=== PATIENT | female | born 1965 | race Caucasian/White ===

== ENCOUNTER 2020-03-02 18:49 | Emergency (ER) | payer OTHER ==
[~2020-03-02] VITALS: Ht 160 cm; Wt 98.4 kg
[2020-03-02 19:00] VITALS: BP_SYST 151
[2020-03-02] MEDS ORDERED: ONDANSETRON 4 MG ODT TAB PO ONE (20:00)
[2020-03-02] MEDS ORDERED: KETOROLAC TROMETHAMINE 60 MG/2 ML VIAL IM ONE (20:00)
[2020-03-02] MEDS ORDERED: MORPHINE 4 MG/ML INJ. SYRINGE IM ONE (20:45)
[2020-03-02] MEDS ORDERED: PROCHLORPERAZINE EDISYLATE 10 MG/2 ML VIAL IVP ONE (21:00)
[2020-03-02] MEDS ORDERED: NACL 0.9% 1,000 ML IV ONE (21:00)
[2020-03-02] MEDS ORDERED: DIPHENHYDRAMINE INJ 50 MG/ML VIAL IVP ONE (21:00)
[2020-03-02 22:14] VITALS: BP_SYST 148
== END 2020-03-02 22:14 | disposition home or self-care (01) ==
LOC: SED 18:49
DX: R51 Headache (principal); R11.2 Nausea with vomiting, unspecified
CPT/HCPCS: 81002; 81025; 96361; 96372; 96374; 96375; 99284; J7030; J0780; J1200; J1885; J2270; Q0162

== ENCOUNTER 2020-03-08 20:13 | Inpatient (IN) | payer OTHER ==
[~2020-03-08] VITALS: Ht 160 cm; Wt 99.3 kg
[2020-03-08 20:15] VITALS: BP_SYST 157
[2020-03-08] MEDS ORDERED: NACL 0.9% 1,000 ML IV ONE (20:18)
[2020-03-08 20:54] LABS: EOSINOPHILS # (AUTO) 0.1 K/uL (0.0-0.4); HEMOGLOBIN 15.9 g/dL (12.0-16.0); MEAN CORPUSCULAR HEMOGLOBIN 31 pg (27-31); MONOCYTES # (AUTO) 0.6 K/uL (0.0-1.0); MONOCYTES % (AUTO) 6.1 % (1.7-9.3); RED CELL DISTRIBUTION WIDTH 13.2 % (9.0-15.0)
[2020-03-08 21:01] LABS: BASOPHILS % (AUTO) 0.2 % (0.0-2.0); EOSINOPHILS % (AUTO) 0.8 % (0.0-4.0); HEMATOCRIT 46.6 % (36-48); LYMPHOCYTES # (AUTO) 4.6 K/uL (1.0-5.5); LYMPHOCYTES % (AUTO) 48.9 % (20.5-51.5); MEAN CORPUSCULAR HGB CONC 34 % (32-36); MEAN CORPUSCULAR VOLUME 90 fL (79.0-98.0); NEUTROPHILS # (AUTO) 4.1 K/uL (1.8-7.7); PLATELET COUNT (AUTO) 276 K/uL (130-430); RED BLOOD CELL COUNT(AUTO) 5.18 MIL/uL (4.2-6.2); WHITE BLOOD COUNT (AUTO) 9.4 K/uL (4.8-10.8)
[2020-03-08 21:45] LABS: PROTHROMBIN TIME 9.7 SECS (9.5-12.5)
[2020-03-08 21:53] LABS: CALCIUM 8.5 mg/dL (8.4-11.0); CREATININE 0.95 mg/dL (0.55-1.30); POTASSIUM 3.5 mmol/L (3.5-5.1); TOTAL BILIRUBIN 0.3 mg/dL (0.0-1.0)
[2020-03-08 21:54] LABS: ALBUMIN 3.8 g/dL (3.4-4.8)
[2020-03-08] MEDS ORDERED: ACETAMINOPHEN 325 MG TABLET PO PRN (22:15)
[2020-03-09] VITALS (7 sets, daily range): BP systolic 102–155
[2020-03-09] MEDS: ACETAMINOPHEN 325 MG TABLET PO PRN ×3 (01:37→22:09)
[2020-03-09 06:22] LABS: ALBUMIN 3.2 g/dL (3.4-4.8); CALCIUM 8.1 mg/dL (8.4-11.0); CREATININE 0.69 mg/dL (0.55-1.30); POTASSIUM 4.4 mmol/L (3.5-5.1); TOTAL BILIRUBIN 0.4 mg/dL (0.0-1.0)
[2020-03-09] MEDS: ASPIRIN 81 MG TAB.CHEW PO SCH (08:14)
[2020-03-09] MEDS ORDERED: ASPIRIN 81 MG TAB.CHEW PO SCH (09:00)
[2020-03-09] MEDS ORDERED: METOPROLOL TARTRATE 25 MG TABLET PO ONE (10:00)
[2020-03-09] MEDS ORDERED: LORazepam 2 MG/ML VIAL IVP ONE (10:45)
[2020-03-09] MEDS ORDERED: LISINOPRIL 10 MG TABLET (PRINIVIL) PO ONE (13:45)
[2020-03-09] MEDS: METOPROLOL TARTRATE 25 MG TABLET PO SCH (22:09)
[2020-03-10] VITALS (7 sets, daily range): BP systolic 96–177
[2020-03-10] MEDS: ACETAMINOPHEN 325 MG TABLET PO PRN (04:54)
[2020-03-10] MEDS ORDERED: ONDANSETRON HCL 4 MG/2 ML VIAL IVP PRN (07:45)
[2020-03-10] MEDS ORDERED: LORazepam 2 MG/ML VIAL IVP ONE (07:45)
[2020-03-10] MEDS: ASPIRIN 81 MG TAB.CHEW PO SCH (08:20)
[2020-03-10] MEDS ORDERED: LISINOPRIL 10 MG TABLET (PRINIVIL) PO SCH (09:00)
[2020-03-10] MEDS ORDERED: ATORVASTATIN 10 MG TABLET PO SCH (09:00)
[2020-03-10] MEDS: METOPROLOL TARTRATE 25 MG TABLET PO SCH (09:52)
== END 2020-03-10 17:20 | disposition home or self-care (01) | DRG 69 ==
LOC: SED 20:13 → STU 22:04
PROVIDERS: ADMIT Family Medicine; ATTEND Family Medicine
DX: G45.9 Transient cerebral ischemic attack, unspecified (principal); R47.01 Aphasia; G81.91 Hemiplegia, unspecified affecting right dominant side; E78.5 Hyperlipidemia, unspecified; I10 Essential (primary) hypertension; N28.9 Disorder of kidney and ureter, unspecified; G43.909 Migraine, unspecified, not intractable, without status migrainosus; R47.81 Slurred speech
CPT/HCPCS: 36415; 70450-TC; 70544; 70551; 71045; 80053; 80061; 82150-TC; 82550-TC; 83605; 83690-TC; 84484; 85025; 85610-TC; 85730-TC; 87040-TC; 93005; 96360; 99285; G0378; J2060; J2405; J7030